=== PATIENT | male | born 1985 | race Two or more races ===

== ENCOUNTER 2016-07-29 19:29 | Emergency (ER) ==
--- NOTE | 2016-07-29 23:01 | EDDOCDS ---
Nurse's Notes [facility] Name: [place] Wilkinson Age: 31 yrs Sex: Male : 1985 Arrival Date: 07/29/2016 Time: 19:29 Bed TR8 Private MD: Other - Complete Info On Cds Diagnosis: Other chest pain-atypical Presentation: 07/29 19:47 Presenting complaint: Patient states: pain in left breast - ongoing for about 2 hours - pml states he was resting when pain started. denies SOB but reports increased pain with inspiration. Aspirin was not taken prior to arrival. Adult Sepsis Screening: The patient does not have new or worsening altered mentation. Patient's respiratory rate is less than 22. Systolic blood pressure is greater than 100. Patient has a qSOFA score of 0- Negative Sepsis Screen. Suicide/Homicide risk assessment- the patient denies having any suicidal and/or homicidal ideations and does not present with any other emotional, behavioral or mental health complaints. Status: former . Transition of care: patient was not received from another setting of care. 19:47 Acuity: SARAH Level 3 pml 19:47 Method Of Arrival: Walkin/Carried/Asstd pml Triage Assessment: 19:48 General: Appears in no apparent distress, Behavior is appropriate for age, cooperative. pml Pain: Location: left breast Pain currently is 6 out of 10 on a pain scale. Pt requests HIV screening. Order Generated. Cardiovascular: Chest pain is described as mild, radiates Does not radiate. episodes are continuous began 2 hours prior to arrival. Historical: - Allergies: no known allergies; - Home Meds: 1. none - PMHx: none; - PSHx: none; - Social history: Smoking status: Patient states was never smoker of tobacco. No barriers to communication noted, The patient speaks fluent [place], Speaks appropriately for age. - Family history: Not pertinent. - : The pt / caregiver states he / she is not on anticoagulants. Home medication list is obtained from the patient. - Exposure Risk Screening:: None identified. Screenin:59 Screening information is obtained from the patient. Fall risk: No risks identified. ms18 Assistance ADL's: requires no assistance with activities of daily living. Abuse/DV Screen: The patient / caregiver reports he/she is: not in a situation that causes fear, pain or injury. Nutritional screening: No deficits noted. Advance Directives: There is no living will. home support is adequate. Assessment: 22:59 General: Appears in no apparent distress, comfortable, well nourished, well groomed, ms18 Behavior is appropriate for age, cooperative, pleasant. Pain: Location: left breast Pain currently is 6 out of 10 on a pain scale. Neurological: Level of Consciousness is awake, alert, obeys commands, Oriented to person, place, time. Cardiovascular: Capillary refill < 3 seconds Rhythm is regular. Respiratory: Airway is patent Respiratory effort is even, unlabored. Derm: Skin is intact, Skin is dry, Skin is normal, Skin temperature is warm. Vital Signs: 19:32 BP 144 / 81; Pulse 91; Resp 18 S; Temp 98.5(O); Pulse Ox 98% on R/A; Weight 81.65 kg gr2 (R); Height 68 in. (172.72 cm) (R); Pain 7/10; 22:54 BP 130 / 79 LA Sitting (auto/); Pulse 74; Resp 22; Temp 99.1; Pulse Ox 98% on R/A; Pain bnb 6/10; 22:59 Resp 20; ms18 19:32 Body Mass Index 27.37 (81.65 kg, 172.72 cm) gr2 Vitals: 19:32 Log In Time: July 29, 2016 at 19:32. gr2 ED Course: 19:30 Patient visited by Sarah Aguirre. gr2 19:30 Other - Complete Info On Cds is Private Physician. gr2 19:30 Patient moved to Waiting gr2 19:32 Patient visited by Sarah Aguirre. gr2 19:34 Patient visited by Sarah Aguirre. gr2 19:34 Patient moved to Pre RCE gr2 19:48 Triage Initiated pml 19:50 Patient visited by Zoë Kinsey RN. pml 20:03 Barney Head,ELI is Primary Nurse. jmb 21:56 Patient moved to Triage 3 ar3 22:22 Jorge Sherwood PA is PHCP. mo1 22:22 Chris Ron DO is Attending Physician. mo1 22:32 Barney Head,ELI is Primary Nurse. jmb 22:34 Patient visited by Jorge Sherwood PA. mo1 22:48 EKG done. (by ED staff). Reviewed by Jorge GOTTI. ms18 22:55 Patient visited by Daisy Head PCA. bnb 22:59 Patient visited by Belkis Martinez RN. ms18 22:59 The patient / caregiver is instructed regarding the plan of care and ED course. Patient ms18 has correct armband on for positive identification. Cardiac monitoring not applicable on this patient. Property sent home with patient. :Personal belongings accompany Pt. 22:59 No IV's were initiated during this patient's visit. No procedures done that require ms18 assistance. 23:00 Patient moved to TR8 cz Order Results: There are currently no results for this order. Outcome: 22:49 Discharge ordered by Provider. mo1 22:59 Discharge Assessment: Patient awake, alert and oriented x 3. No cognitive and/or ms18 functional deficits noted. Patient verbalized understanding of disposition instructions. patient administered narcotics - no. The following High Risk Discharge criteria are identified: None. Discharged to home ambulatory. Condition: good Condition: stable. Discharge instructions given to patient, Instructed on discharge instructions, follow up and referral plans. Demonstrated understanding of instructions, Pt was receptive of discharge instructions/ teaching. No special radiology studies were completed. 23:01 Patient left the ED. ms18 Signatures: Michael Bearden, RN ELI cz Lynn Robb, EVICTION SPECIALIST EVICTION SPECIALIST ar3 Zoë KinseyRN ELI [facility] Sarah Aguirre 2 Jorge Sherwood PA PA mo1 Barney Head RN RN jmb Smith, Mallory,ELI BENITEZ ms18 Daisy Head, EVICTION SPECIALIST EVICTION SPECIALIST bnb MTDD
--- NOTE | 2016-07-29 23:01 | EDDOCDS ---
Physician Documentation [facility] Name: [place] Age: 31 yrs Sex: Male : 1985 Arrival Date: 07/29/2016 Time: 19:29 Bed TR8 Private MD: Other - Complete Info On Cds Disposition: 07/29/16 22:49 Discharged to Home/Self Care. Impression: Other chest pain - atypical. - Condition is Stable. - Discharge Instructions: Nonspecific Chest Pain, Chest Wall Pain. - Medication Reconciliation, Local Pharmacy Hours form. - Follow up: Private Physician; When: Call to arrange an appointment; Reason: Recheck today's complaints, Continuance of care. - Problem is new. - Symptoms are unchanged. Historical: - Allergies: no known allergies; - Home Meds: 1. none - PMHx: none; - PSHx: none; - Social history: Smoking status: Patient states was never smoker of tobacco. No barriers to communication noted, The patient speaks fluent Montenegrin, Speaks appropriately for age. - Family history: Not pertinent. - : The pt / caregiver states he / she is not on anticoagulants. Home medication list is obtained from the patient. - Exposure Risk Screening:: None identified. Vital Signs: 07/29 19:32 BP 144 / 81; Pulse 91; Resp 18 S; Temp 98.5(O); Pulse Ox 98% on R/A; Weight 81.65 kg / gr2 180.01 lbs (R); Height 68 in. (172.72 cm) (R); Pain 7/10; 22:54 BP 130 / 79 LA Sitting (auto/); Pulse 74; Resp 22; Temp 99.1; Pulse Ox 98% on R/A; Pain bnb 6/10; 22:59 Resp 20; ms18 19:32 Body Mass Index 27.37 (81.65 kg, 172.72 cm) gr2 MDM: 22:33 ECG WITH READING ER PHYS+CARDIAG ordered. EDMS Signatures: Dispatcher [employer] EDMS Zoë KinseyRN RN [facility] Jorge Sherwood PA PA [place]1 Belkis MartinezRN RN ms18 The chart was reviewed and I authenticate all verbal orders and agree with the evaluation and treatment provided.Corrections: (The following items were deleted from the chart) 21:59 19:50 HIV Screen, Nursing ordered. pml ms18 MTDD
--- NOTE | 2016-07-31 07:53 | ECGEPIP ---
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
--- NOTE | 2016-08-01 00:02 | EDDOCDS ---
Nurse's Notes [facility] Name: [place] Age: 31 yrs Sex: Male : 1985 Arrival Date: 07/29/2016 Time: 19:29 Bed TR8 Private MD: Other - Complete Info On Cds Diagnosis: Other chest pain-atypical Presentation: 07/29 19:47 Presenting complaint: Patient states: pain in left breast - ongoing for about 2 hours - pml states he was resting when pain started. denies SOB but reports increased pain with inspiration. Aspirin was not taken prior to arrival. Adult Sepsis Screening: The patient does not have new or worsening altered mentation. Patient's respiratory rate is less than 22. Systolic blood pressure is greater than 100. Patient has a qSOFA score of 0- Negative Sepsis Screen. Suicide/Homicide risk assessment- the patient denies having any suicidal and/or homicidal ideations and does not present with any other emotional, behavioral or mental health complaints. Status: former . Transition of care: patient was not received from another setting of care. 19:47 Acuity: SARAH Level 3 pml 19:47 Method Of Arrival: Walkin/Carried/Asstd pml Triage Assessment: 19:48 General: Appears in no apparent distress, Behavior is appropriate for age, cooperative. pml Pain: Location: left breast Pain currently is 6 out of 10 on a pain scale. Pt requests HIV screening. Order Generated. Cardiovascular: Chest pain is described as mild, radiates Does not radiate. episodes are continuous began 2 hours prior to arrival. Historical: - Allergies: no known allergies; - Home Meds: 1. none - PMHx: none; - PSHx: none; - Social history: Smoking status: Patient states was never smoker of tobacco. No barriers to communication noted, The patient speaks fluent [place], Speaks appropriately for age. - Family history: Not pertinent. - : The pt / caregiver states he / she is not on anticoagulants. Home medication list is obtained from the patient. - Exposure Risk Screening:: None identified. Screenin:59 Screening information is obtained from the patient. Fall risk: No risks identified. ms18 Assistance ADL's: requires no assistance with activities of daily living. Abuse/DV Screen: The patient / caregiver reports he/she is: not in a situation that causes fear, pain or injury. Nutritional screening: No deficits noted. Advance Directives: There is no living will. home support is adequate. Assessment: 22:59 General: Appears in no apparent distress, comfortable, well nourished, well groomed, ms18 Behavior is appropriate for age, cooperative, pleasant. Pain: Location: left breast Pain currently is 6 out of 10 on a pain scale. Neurological: Level of Consciousness is awake, alert, obeys commands, Oriented to person, place, time. Cardiovascular: Capillary refill < 3 seconds Rhythm is regular. Respiratory: Airway is patent Respiratory effort is even, unlabored. Derm: Skin is intact, Skin is dry, Skin is normal, Skin temperature is warm. Vital Signs: 19:32 BP 144 / 81; Pulse 91; Resp 18 S; Temp 98.5(O); Pulse Ox 98% on R/A; Weight 81.65 kg gr2 (R); Height 68 in. (172.72 cm) (R); Pain 7/10; 22:54 BP 130 / 79 LA Sitting (auto/); Pulse 74; Resp 22; Temp 99.1; Pulse Ox 98% on R/A; Pain bnb 6/10; 22:59 Resp 20; ms18 19:32 Body Mass Index 27.37 (81.65 kg, 172.72 cm) gr2 Vitals: 19:32 Log In Time: July 29, 2016 at 19:32. gr2 ED Course: 19:30 Patient visited by Sarah Aguirre. gr2 19:30 Other - Complete Info On Cds is Private Physician. gr2 19:30 Patient moved to Waiting gr2 19:32 Patient visited by Sarah Aguirre. gr2 19:34 Patient visited by Sarah Aguirre. gr2 19:34 Patient moved to Pre RCE gr2 19:48 Triage Initiated pml 19:50 Patient visited by Zoë Kinsey RN. pml 20:03 Barney Head,ELI is Primary Nurse. jmb 21:56 Patient moved to Triage 3 ar3 22:22 Jorge Sherwood PA is PHCP. mo1 22:22 Chris Ron DO is Attending Physician. mo1 22:32 Barney Head,ELI is Primary Nurse. jmb 22:34 Patient visited by Jorge Sherwood PA. mo1 22:48 EKG done. (by ED staff). Reviewed by Jorge GOTTI. ms18 22:55 Patient visited by Daisy Head PCA. bnb 22:59 Patient visited by Belkis Martinez RN. ms18 22:59 The patient / caregiver is instructed regarding the plan of care and ED course. Patient ms18 has correct armband on for positive identification. Cardiac monitoring not applicable on this patient. Property sent home with patient. :Personal belongings accompany Pt. 22:59 No IV's were initiated during this patient's visit. No procedures done that require ms18 assistance. 23:00 Patient moved to TR8 cz 07/30 09:13 T-Sheet-- Draft Copy was scanned into [employer] and attached to record. gb 09:13 ECG/EKG was scanned into [employer] and attached to record. gb 07/31 08:22 EKG-ADULT Returned. 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 mo1 22:59 Discharge Assessment: Patient awake, alert and oriented x 3. No cognitive and/or ms18 functional deficits noted. Patient verbalized understanding of disposition instructions. patient administered narcotics - no. The following High Risk Discharge criteria are identified: None. Discharged to home ambulatory. Condition: good Condition: stable. Discharge instructions given to patient, Instructed on discharge instructions, follow up and referral plans. Demonstrated understanding of instructions, Pt was receptive of discharge instructions/ teaching. No special radiology studies were completed. 23:01 Patient left the ED. ms18 Signatures: Dispatcher [employer] EDMichael Archibald, RN RN cz Vianney Swan, Reg Reg gb Lynn Robb, CUSTOMS COMPLIANCE DIRECTOR CUSTOMS COMPLIANCE DIRECTOR ar3 Zoë Kinsey,RN RN pml Sarah Aguirre gr2 Jorge Sherwood PA PA mo1 Barney Head RN RN jmb Smith, Mallory, RN RN ms18 Daisy Head, CUSTOMS COMPLIANCE DIRECTOR CUSTOMS COMPLIANCE DIRECTOR bnb Chart Complete MTDD
--- NOTE | 2016-08-01 00:02 | EDDOCDS ---
Physician Documentation [facility] Name: [place] Age: 31 yrs Sex: Male : 1985 Arrival Date: 07/29/2016 Time: 19:29 Bed TR8 Private MD: Other - Complete Info On Cds Disposition: 07/29/16 22:49 Discharged to Home/Self Care. Impression: Other chest pain - atypical. - Condition is Stable. - Discharge Instructions: Nonspecific Chest Pain, Chest Wall Pain. - Medication Reconciliation, Local Pharmacy Hours form. - Follow up: Private Physician; When: Call to arrange an appointment; Reason: Recheck today's complaints, Continuance of care. - Problem is new. - Symptoms are unchanged. Historical: - Allergies: no known allergies; - Home Meds: 1. none - PMHx: none; - PSHx: none; - Social history: Smoking status: Patient states was never smoker of tobacco. No barriers to communication noted, The patient speaks fluent Nigerien, Speaks appropriately for age. - Family history: Not pertinent. - : The pt / caregiver states he / she is not on anticoagulants. Home medication list is obtained from the patient. - Exposure Risk Screening:: None identified. Vital Signs: 07/29 19:32 BP 144 / 81; Pulse 91; Resp 18 S; Temp 98.5(O); Pulse Ox 98% on R/A; Weight 81.65 kg / gr2 180.01 lbs (R); Height 68 in. (172.72 cm) (R); Pain 7/10; 22:54 BP 130 / 79 LA Sitting (auto/); Pulse 74; Resp 22; Temp 99.1; Pulse Ox 98% on R/A; Pain bnb 6/10; 22:59 Resp 20; ms18 19:32 Body Mass Index 27.37 (81.65 kg, 172.72 cm) gr2 MDM: 22:33 ECG WITH READING ER PHYS+CARDIAG ordered. EDTX 07/30 09:13 T-Sheet-- Draft Copy was scanned into [employer] and attached to record. 09:13 ECG/EKG was scanned into [employer] and attached to record. gb Signatures: Dispatcher [employer] EDTX Vianney Swan, Reg Reg Zoë Brannon RN RN pml Jorge Sherwood PA PA mo1 Belkis Martinez RN RN ms18 The chart was reviewed and I authenticate all verbal orders and agree with the evaluation and treatment provided.Corrections: (The following items were deleted from the chart) 07/29 21:59 19:50 HIV Screen, Nursing ordered. pml ms18 Attachments: 07/30 09:13 T-Sheet-- Draft Copy gb 09:13 ECG/EKG gb Chart Complete MTDD
--- NOTE | 2016-08-01 00:02 | EDDOCDS ---
Physician Documentation [facility] Name: [place] Wilkinson Age: 31 yrs Sex: Male : 1985 Arrival Date: 07/29/2016 Time: 19:29 Bed TR8 Private MD: Other - Complete Info On Cds Disposition: 07/29/16 22:49 Discharged to Home/Self Care. Impression: Other chest pain - atypical. - Condition is Stable. - Discharge Instructions: Nonspecific Chest Pain, Chest Wall Pain. - Medication Reconciliation, Local Pharmacy Hours form. - Follow up: Private Physician; When: Call to arrange an appointment; Reason: Recheck today's complaints, Continuance of care. - Problem is new. - Symptoms are unchanged. Historical: - Allergies: no known allergies; - Home Meds: 1. none - PMHx: none; - PSHx: none; - Social history: Smoking status: Patient states was never smoker of tobacco. No barriers to communication noted, The patient speaks fluent [place]ian, Speaks appropriately for age. - Family history: Not pertinent. - : The pt / caregiver states he / she is not on anticoagulants. Home medication list is obtained from the patient. - Exposure Risk Screening:: None identified. Vital Signs: 07/29 19:32 BP 144 / 81; Pulse 91; Resp 18 S; Temp 98.5(O); Pulse Ox 98% on R/A; Weight 81.65 kg / gr2 180.01 lbs (R); Height 68 in. (172.72 cm) (R); Pain 7/10; 22:54 BP 130 / 79 LA Sitting (auto/); Pulse 74; Resp 22; Temp 99.1; Pulse Ox 98% on R/A; Pain bnb 6/10; 22:59 Resp 20; ms18 19:32 Body Mass Index 27.37 (81.65 kg, 172.72 cm) gr2 MDM: 22:33 ECG WITH READING ER PHYS+CARDIAG ordered. EDSD 07/30 09:13 T-Sheet-- Draft Copy was scanned into [employer] and attached to record. 09:13 ECG/EKG was scanned into [employer] and attached to record. gb Signatures: Dispatcher [employer] EDSD Vianney Swan, Reg Reg Zoë Brannon RN RN pml Jorge Sherwood PA PA mo1 Belkis Martinez RN RN ms18 The chart was reviewed and I authenticate all verbal orders and agree with the evaluation and treatment provided.Corrections: (The following items were deleted from the chart) 07/29 21:59 19:50 HIV Screen, Nursing ordered. pml ms18 Attachments: 07/30 09:13 T-Sheet-- Draft Copy gb 09:13 ECG/EKG gb Chart Complete MTDD
== END 2016-07-29 23:01 | disposition home or self-care (01) ==
LOC: M ED 19:29
DX: R07.89 Other chest pain (principal)

== ENCOUNTER 2016-10-04 17:03 | Emergency (ER) | payer OTHER, SELFPAY ==
[~2016-10-04] VITALS: Ht 172.7 cm; Wt 86.2 kg
[2016-10-04] MEDS ORDERED: NS 1,000 ML IV ONE (18:30)
[2016-10-04] MEDS ORDERED: KETOROLAC 30 MG/ML VIAL (J1885) IV ONE (18:30)
--- NOTE | 2016-10-04 19:31 | REP ---
Clinical: Chest pain . Comparison: None . Technique: PA and lateral. Findings: The mediastinum and cardiac silhouette are normal. The lung nagel are clear and without acute consolidation, effusion, or pneumothorax. The skeletal structures are intact and normal. Impression: 1. No acute cardiopulmonary process. Signed by Robert Marti MD 10/04/2016 07:22 P
[2016-10-04] MEDS ORDERED: MOTR200T44 PO (19:53)
[2016-10-04 20:01] VITALS: BP 154/90
--- NOTE | 2016-10-05 09:26 | ECGEPIP ---
Stationary ECG Study 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
== END 2016-10-04 20:03 | disposition home or self-care (01) ==
LOC: M ED 18:24
DX: S29.001A Unspecified injury of muscle and tendon of front wall of thorax, initial encounter (principal); X58.XXXA Exposure to other specified factors, initial encounter; Y92.89 Other specified places as the place of occurrence of the external cause; Y93.89 Activity, other specified; Y99.8 Other external cause status; R07.89 Other chest pain; I10 Essential (primary) hypertension; E78.5 Hyperlipidemia, unspecified
CPT/HCPCS: 71020; 80048; 82550; 82553; 85025; 85379; 85610; 85730; 93005; 96361; 96374; 96375; 99283; J1885